=== PATIENT | female | born 1945 | race Caucasian/White ===

== ENCOUNTER 2016-10-28 16:13 | Inpatient (IN) | payer OTHER ==
[~2016-10-28] VITALS: Ht 160 cm; Wt 76.7 kg
--- NOTE | ~2016-10-28 | EKG ---
[address] [place] [employer] [place] [address] ELECTROCARDIOGRAM REPORT Name: MIRTA PADILLA Room #: 217-P ADM IN M.R.#: [id number] Admission: 10/28/16 Attend Phys: Mohsen Rangel MD Discharge: Date of : 43 Report #: [id number] THIS REPORT FOR: //name// [facility] ED Test Date: 2016-10-28 Test Time: 16:17:11 Pat Name: MIRTA PADILLA Department: Room: [facility] Gender: F Medical Affairs Manager: CHRISTIANO : 1945 Requested By: Toan Back Order Number: [id number] MD: Clay Hobbs Measurements Intervals [place] Rate: 65 P: 82 GA: 171 QRS: 23 QRSD: 95 T: 130 QT: 432 QTc: 450 Interpretive Statements Sinus rhythm Low voltage, precordial leads Nonspecific T abnrm, anterolateral leads Compared to ECG 08/13/2012 23:34:33 No significant change was found Electronically Signed On 10-29-2016 9:54:58 CDT by Clay Hobbs [email or web address] <ELECTRONICALLY SIGNED> By: Clay Hobbs MD, [facility] 10/29/16 0954 [id number] [id number] Clay Hobbs MD, [facility] /EPI
[~2016-10-28 16:13] MED LIST: FAMOTIDINE 40 M40 M1 PO; SIMVASTATIN20 MG PO; TRIAMTERENE-HC1 EAC1 PO; ZOFRAN ODT4 MG PO
[2016-10-28] MEDS ORDERED: METFORMIN HCL500 MG PO (16:20)
[2016-10-28] MEDS ORDERED: ZETIA10 MG PO (16:21)
[2016-10-28] MEDS ORDERED: VITAMIN E400 UNIT PO (16:21)
[2016-10-28] MEDS ORDERED: CRESTOR10 MG PO (16:21)
[2016-10-28] MEDS ORDERED: LASIX 20 MG TAB20 MG PO (16:21)
[2016-10-28] MEDS ORDERED: PLAVIX 75 MG TA75 M1 PO (16:22)
[2016-10-28] MEDS ORDERED: ASPIR 8181 MG PO (16:22)
[2016-10-28] MEDS ORDERED: B12INJ PO (16:22)
[2016-10-28] MEDS ORDERED: [UNRECOGNIZED DRUG - OTHER] (16:22)
[2016-10-28] MEDS ORDERED: FISH OIL 1,001000 M2 PO (16:23)
[2016-10-28 16:56] LABS: BASOPHILS 0.5 % (0.0-2.0); EOSINOPHILS 0.9 % (0.0-3.0); HEMATOCRIT 36.8 % (37.0-47.0); HEMOGLOBIN 12.8 gm/dL (12.0-15.0); LYMPHOCYTES 11.6 % (24.0-44.0); MCH 29.4 pg (26.0-34.0); MCHC 34.8 g/dL (28.0-37.0); MCV 84.6 fL (80.0-100.0); MONOCYTES 6.2 % (1.0-8.0); PLATELET COUNT 170 thou/uL (150-400); POLYS 80.8 % (36.0-66.0); RBC 4.35 mil/uL (4.20-5.00); RDW 13.2 % (10.5-14.5); WBC 7.4 thou/uL (4.0-11.0)
[2016-10-28 17:00] LABS: MANUAL DIFF NO
[2016-10-28 17:04] LABS: ANION GAP 8 mmol/L (7-16); BUN 20 mg/dL (7-18); CALCIUM 9.5 mg/dL (8.5-10.1); CHLORIDE 102 mmol/L (98-107); CO2 28 mmol/L (21-32); CREATININE 1.4 mg/dL (0.6-1.0); GLUCOSE 130 mg/dL (74-106); POTASSIUM 3.3 mmol/L (3.5-5.1); SODIUM 138 mmol/L (136-145)
[2016-10-28 17:13] LABS: TROPONIN-I < 0.04 ng/mL (<0.04-0.07)
[2016-10-28 18:24] VITALS: BP 130/49
[2016-10-28 18:48] VITALS: BP 133/89
[2016-10-28 19:00] VITALS: BP 126/49
[2016-10-28 19:45] VITALS: BP 126/49
[2016-10-29 00:30] VITALS: BP 121/56
[2016-10-29 04:35] VITALS: BP 110/74
[2016-10-29 07:09] VITALS: BP 121/62
[2016-10-29 08:20] LABS: CALCIUM 9.5 mg/dL (8.5-10.1); CREATININE 1.1 mg/dL (0.6-1.0); POTASSIUM 3.8 mmol/L (3.5-5.1)
[2016-10-29] MEDS ORDERED: VITAMIN D2000 UNIT PO (10:05)
[2016-10-29 11:01] VITALS: BP 104/54
[2016-10-29 15:45] VITALS: BP 104/54
== END 2016-10-29 16:09 | disposition home or self-care (01) | DRG 303 ==
LOC: ER 16:13 → EROBS 17:58 → 2N 17:58
PROVIDERS: Emergency Medicine; Family Medicine
DX: I25.110 Atherosclerotic heart disease of native coronary artery with unstable angina pectoris (principal); I10 Essential (primary) hypertension; E78.5 Hyperlipidemia, unspecified; E03.9 Hypothyroidism, unspecified; L40.9 Psoriasis, unspecified; K21.9 Gastro-esophageal reflux disease without esophagitis; Z88.6 Allergy status to analgesic agent; Z88.0 Allergy status to penicillin; Z88.2 Allergy status to sulfonamides; Z88.8 Allergy status to other drugs, medicaments and biological substances; Z95.5 Presence of coronary angioplasty implant and graft; Z87.891 Personal history of nicotine dependence; Z91.040 Latex allergy status; Z90.49 Acquired absence of other specified parts of digestive tract
CPT/HCPCS: 10081

== ENCOUNTER 2019-07-27 11:03 | Emergency (ER) | payer OTHER ==
[~2019-07-27] VITALS: Ht 160 cm; Wt 69.4 kg
[~2019-07-27 11:03] MED LIST changes: +ASPIR 8181 MG PO; +B12INJ PO; +CRESTOR10 MG PO; +FISH OIL 1,001000 M2 PO; +LASIX 20 MG TAB20 MG PO; +METFORMIN HCL500 MG PO; +PLAVIX 75 MG TA75 M1 PO; +VITAMIN D2000 UNIT PO; +VITAMIN E400 UNIT PO; +ZETIA10 MG PO; +[UNRECOGNIZED DRUG - OTHER]
[2019-07-27 11:42] LABS: ABSOLUTE NEUTROPHILS 3.3 thou/uL (1.4-8.2); BASOPHILS 0.5 % (0.0-2.0); EOSINOPHILS 0.8 % (0.0-3.0); HEMOGLOBIN 13.1 gm/dL (12.0-15.0); LYMPHOCYTES 21.9 % (24.0-44.0); MCH 30.1 pg (26.0-34.0); MCHC 34.4 g/dL (28.0-37.0); MCV 87.6 fL (80.0-100.0); MONOCYTES 8.9 % (1.0-8.0); POLYS 67.9 % (36.0-66.0); RBC 4.34 mil/uL (4.20-5.00); RDW 13.1 % (10.5-14.5); WBC 4.9 thou/uL (4.0-11.0)
[2019-07-27 11:51] LABS: CALCIUM 9.2 mg/dL (8.5-10.1); POTASSIUM 3.2 mmol/L (3.5-5.1)
[2019-07-27 11:58] LABS: ALBUMIN 3.4 g/dL (3.4-5.0); TOTAL BILIRUBIN 0.7 mg/dL (<0.1-1.0); TOTAL PROTEIN 7.5 g/dL (6.4-8.2)
[2019-07-27 12:19] LABS: PLATELET COUNT 161 thou/uL (150-400); PLATELET ESTIMATE NORMAL
[2019-07-27 12:20] LABS: LARGE PLATELETS OCCASIONAL
[2019-07-27] MEDS ORDERED: MECLIZINE HCL25 M1 PO (15:15)
[2019-07-27] MEDS ORDERED: ZOFRAN ODT4 MG PO (15:15)
[2019-07-27 16:11] VITALS: BP 123/52
--- NOTE | 2019-07-29 07:58 | EKG ---
[facility] [place] [address] ELECTROCARDIOGRAM REPORT Name: MIRTA PADILLA Room #: DEP [facility]#: [id number] Admission: 07/27/19 Attend Phys: Discharge: 07/27/19 Date of : 43 Report #: [id number] THIS REPORT FOR: cc: Stella Romo MD, Cora A. MD Lundgren,Clay Figueroa MD [facility] ~ THIS REPORT FOR: //name// [facility] ED Test Date: 2019-07-27 Test Time: 11:09:50 Pat Name: MIRTA PADILLA Department: Room: Gender: [employer] Supervisor: [facility] : 1945 Requested By: Serina Sanford Order Number: [id number] MD: Clay Hobbs Measurements Intervals [place] Rate: 60 P: 78 AL: 158 QRS: 50 QRSD: 98 T: 124 QT: 454 QTc: 454 Interpretive Statements Sinus rhythm Anteroseptal infarct, old Borderline repolarization abnormality Compared to ECG 10/28/2016 16:17:11 Septal Q waves are now present Electronically Signed On 07-29-2019 7:56:35 CDT by Clay Hobbs [email or web address] <ELECTRONICALLY SIGNED> By: Clay Hobbs MD, [facility] 07/29/19 0756 [id number] [id number] Clay Hobbs MD, [facility] /EPI
== END 2019-07-27 16:30 | disposition home or self-care (01) ==
LOC: ER 11:03
PROVIDERS: Emergency Medicine
DX: R42 Dizziness and giddiness (principal); R11.2 Nausea with vomiting, unspecified; E78.5 Hyperlipidemia, unspecified; Z79.899 Other long term (current) drug therapy; Z79.82 Long term (current) use of aspirin; Z98.890 Other specified postprocedural states; Z88.6 Allergy status to analgesic agent; Z88.8 Allergy status to other drugs, medicaments and biological substances; Z88.0 Allergy status to penicillin